=== PATIENT | female | born 1950 | race Caucasian/White ===

== ENCOUNTER 2020-07-21 15:01 | Emergency (ER) | payer MEDICARE, OTHER | END 2020-07-21 19:02 | disposition home or self-care (01) | LOC: CSHERS 15:01 | DX: S70.02XA Contusion of left hip, initial encounter (principal); J44.9 Chronic obstructive pulmonary disease, unspecified; N18.4 Chronic kidney disease, stage 4 (severe); Z87.891 Personal history of nicotine dependence; Z79.82 Long term (current) use of aspirin; W06.XXXA Fall from bed, initial encounter | CPT/HCPCS: 70450; 71045; 93005 ==

== ENCOUNTER 2020-08-28 15:09 | Outpatient (CLI) | payer MEDICARE, OTHER | END 2020-08-28 15:10 | disposition home or self-care (01) | LOC: CSHMRI 15:09 | PROVIDERS: ATTEND Neurological Surgery | DX: S06.5X0A Traumatic subdural hemorrhage without loss of consciousness, initial encounter (principal); R26.89 Other abnormalities of gait and mobility | CPT/HCPCS: 70551; 72141 ==

== ENCOUNTER 2020-09-08 18:54 | Inpatient (IN) | payer MEDICARE, OTHER ==
[2020-09-08 20:59] LABS: #Eosinphils 0.2 10x3/uL (0.0-0.5); #Monocytes 0.7 10x3/uL (0.0-1.1); #Neutrophils 5.8 10x3/uL (1.5-8.4); %Basophils 0.3 % (0.0-2.0); %Eosinophils 1.9 % (0.0-6.0); %Lymphocytes 29.2 % (18.0-47.0); %Neutrophils 61.1 % (40.0-75.0); Hemoglobin 10.2 g/dL (12.0-15.5); Mean Corpuscular HGB CONC 30.4 g/dL (32.0-36.0); Mean Corpuscular Volume 92.3 fl (81.6-98.3); Mean Platelet Volume 9.5 fl (7.4-10.4); Platelet Count 210 10x3/uL (150-450); RBC Distribution Width 15.1 % (11.5-14.5); Red Blood Cell (RBC) Count 3.64 10x6/uL (3.90-5.03); White Blood Cell (WBC) Count 9.5 10x3/uL (3.5-10.5)
[2020-09-08 21:22] LABS: ALT (SGPT) 14 U/L (8-55); AST (SGOT) 16 U/L (5-34); Albumin 3.7 g/dL (3.4-4.8); Alkaline Phosphatase 73 U/L (40-110); Anion Gap 15 mmol/L (10-20); BUN (Urea Nitrogen) 66 mg/dL (9.8-20.1); Bilirubin, Total 0.1 mg/dL (0.2-1.2); Calc. Creatinine Clearance 0 mL/min (70-130); Calcium 9.5 mg/dL (7.8-10.44); Carbon Dioxide 24 mmol/L (23-31); Chloride 107 mmol/L (98-107); Globulin 3.4 g/dL (2.4-3.5); Glucose 190 mg/dL (80-115); Protein, Total 7.1 g/dL (5.8-8.1); Sodium 140 mmol/L (136-145)
[2020-09-08] MEDS ORDERED: Sodium Bicarb 50 MEQ/50 ML VIAL ONE ×2 (21:53)
[2020-09-08] MEDS ORDERED: Calcium Gluconate 100 MG/ML 10 ML ONE (21:54)
[2020-09-08] MEDS ORDERED: Ventolin HFA Inhaler 60 PUFF INHALER INH SCH (22:00)
[2020-09-08] MEDS ORDERED: Ventolin HFA Inhaler 60 PUFF INHALER ONE (22:16)
[2020-09-09 01:06] VITALS: BMI 32.1
[2020-09-09] MEDS: Sodium Chloride 0.9% 1,000 ML IV SCH ×3 (01:33→09:47)
[2020-09-09 04:58] LABS: #Eosinphils 0.2 10x3/uL (0.0-0.5); #Monocytes 0.5 10x3/uL (0.0-1.1); #Neutrophils 4.4 10x3/uL (1.5-8.4); %Basophils 0.4 % (0.0-2.0); %Eosinophils 2.3 % (0.0-6.0); %Lymphocytes 32.5 % (18.0-47.0); %Neutrophils 57.4 % (40.0-75.0); Hemoglobin 8.9 g/dL (12.0-15.5); Mean Corpuscular HGB CONC 30.3 g/dL (32.0-36.0); Mean Corpuscular Hemoglobin 27.6 pg (27.0-33.0); Mean Corpuscular Volume 91.3 fl (81.6-98.3); Mean Platelet Volume 10.3 fl (7.4-10.4); Platelet Count 191 10x3/uL (150-450); RBC Distribution Width 15.2 % (11.5-14.5); Red Blood Cell (RBC) Count 3.22 10x6/uL (3.90-5.03); White Blood Cell (WBC) Count 7.7 10x3/uL (3.5-10.5)
[2020-09-09 05:10] LABS: Anion Gap 15 mmol/L (10-20); BUN (Urea Nitrogen) 62 mg/dL (9.8-20.1); Calc. Creatinine Clearance 31 mL/min (70-130); Calcium 9.1 mg/dL (7.8-10.44); Carbon Dioxide 24 mmol/L (23-31); Chloride 111 mmol/L (98-107); Glucose 195 mg/dL (80-115); Potassium 4.9 mmol/L (3.5-5.1); Sodium 145 mmol/L (136-145)
[2020-09-09] MEDS: Arformoterol 15 MCG/2 ML NEB NEB SCH ×2 (07:00→18:45)
[2020-09-09] MEDS: Heparin 5,000 UNITS/ML VIAL SC SCH ×3 (08:41→21:11)
[2020-09-09 11:27] LABS: SARS-CoV-2 NAA Rapid Test Not Detected (NotDetected)
[2020-09-09] MEDS ORDERED: Dextrose 50% Abboject 50 ML SYRINGE SLOW IVP PRN (13:02)
[2020-09-09] MEDS ORDERED: Dextrose 5% in Water 1,000 ML IV PRN (13:02)
[2020-09-09] MEDS: HumaLOG 300 UNITS/3 ML VIAL SC PRN ×2 (13:40→22:54)
[2020-09-09] MEDS ORDERED: Oxybutynin 5 MG TAB PO PRN (22:10)
[2020-09-10] MEDS: Sodium Chloride 0.9% 1,000 ML IV SCH (04:38)
[2020-09-10] MEDS: Arformoterol 15 MCG/2 ML NEB NEB SCH ×4 (08:01→20:19)
[2020-09-10] MEDS ORDERED: SITAGLIPTIN PHOSPHATE 25 MG PO SCH (09:00)
[2020-09-10] MEDS ORDERED: Zonisamide 25 MG CAP PO SCH (09:00)
[2020-09-10] MEDS: sulfaSALAzine 500 MG TAB PO SCH ×2 (09:50→22:00)
[2020-09-10] MEDS: Alogliptin 6.25 MG TAB PO SCH (09:50)
[2020-09-10] MEDS: levETIRAcetam 500 mg/5 ml Oral Solution PO SCH (09:50)
[2020-09-10] MEDS: Heparin 5,000 UNITS/ML VIAL SC SCH ×3 (09:50→22:03)
[2020-09-10] MEDS: Gabapentin 400 MG CAP PO SCH ×2 (09:50→22:01)
[2020-09-10] MEDS: Colchicine 0.6 MG TAB PO SCH (09:50)
[2020-09-10] MEDS: DULoxetine 30 MG CAP PO SCH (09:50)
[2020-09-10] MEDS: predniSONE 10 MG TAB PO SCH (09:50)
[2020-09-10] MEDS: Hydroxychloroquine Sulfate 200 MG TAB PO SCH (09:50)
[2020-09-10] MEDS: Bupropion 150 MG XL TAB PO SCH (09:50)
[2020-09-10] MEDS: Aspirin 81 mg Enteric Coated Tablet PO SCH (09:50)
[2020-09-10] MEDS: Ferrous Sulfate 325 MG TAB PO SCH (09:50)
[2020-09-10] MEDS: Metoprolol Tartrate 25 MG TAB PO SCH ×2 (09:50→22:00)
[2020-09-10] MEDS: Folic Acid 1 MG TAB PO SCH (09:50)
[2020-09-10] MEDS: Allopurinol 100 MG TAB PO SCH (09:50)
[2020-09-10 10:35] LABS: Anion Gap 14 mmol/L (10-20); BUN (Urea Nitrogen) 43 mg/dL (9.8-20.1); Calc. Creatinine Clearance 38 mL/min (70-130); Calcium 8.9 mg/dL (7.8-10.44); Carbon Dioxide 23 mmol/L (23-31); Chloride 110 mmol/L (98-107); Glucose 306 mg/dL (80-115); Potassium 4.4 mmol/L (3.5-5.1); Sodium 143 mmol/L (136-145)
[2020-09-10] MEDS: Budesonide 0.25 MG/2 ML NEB INH SCH ×2 (11:33→19:35)
[2020-09-10] MEDS: HYDROcodone/Acetaminophen 5/325 mg Tablet PO PRN ×2 (12:27→22:02)
[2020-09-10] MEDS: HumaLOG 300 UNITS/3 ML VIAL SC PRN (12:42)
[2020-09-10] MEDS ORDERED: Amitriptyline HCl 25 MG TAB PO SCH (21:00)
[2020-09-10] MEDS ORDERED: Simvastatin 10 MG TAB PO SCH (21:00)
[2020-09-11] MEDS: Budesonide 0.25 MG/2 ML NEB INH SCH (07:06)
[2020-09-11] MEDS: Arformoterol 15 MCG/2 ML NEB NEB SCH ×2 (07:06→07:10)
[2020-09-11] MEDS: Bupropion 150 MG XL TAB PO SCH (10:14)
[2020-09-11] MEDS: Heparin 5,000 UNITS/ML VIAL SC SCH (10:14)
[2020-09-11] MEDS: predniSONE 10 MG TAB PO SCH (10:15)
[2020-09-11] MEDS: Colchicine 0.6 MG TAB PO SCH (10:15)
[2020-09-11] MEDS: Hydroxychloroquine Sulfate 200 MG TAB PO SCH (10:15)
[2020-09-11] MEDS: DULoxetine 30 MG CAP PO SCH (10:15)
[2020-09-11] MEDS: sulfaSALAzine 500 MG TAB PO SCH (10:16)
[2020-09-11] MEDS: Gabapentin 400 MG CAP PO SCH (10:16)
[2020-09-11] MEDS: Folic Acid 1 MG TAB PO SCH (10:16)
[2020-09-11] MEDS: Allopurinol 100 MG TAB PO SCH (10:16)
[2020-09-11] MEDS: Metoprolol Tartrate 25 MG TAB PO SCH (10:16)
[2020-09-11] MEDS: Aspirin 81 mg Enteric Coated Tablet PO SCH (10:16)
[2020-09-11] MEDS: Ferrous Sulfate 325 MG TAB PO SCH (10:16)
[2020-09-11] MEDS: Alogliptin 6.25 MG TAB PO SCH (10:17)
[2020-09-11] MEDS: levETIRAcetam 500 mg/5 ml Oral Solution PO SCH (10:18)
[2020-09-11] MEDS: HumaLOG 300 UNITS/3 ML VIAL SC PRN (12:59)
[2020-09-11 15:38] VITALS: BP 115/60; TEMP 98.9
== END 2020-09-11 18:35 | disposition home or self-care (01) | DRG 641 ==
LOC: CSHERS 18:54 → CSHTELE 09-09 00:18
PROVIDERS: ADMIT Family Medicine; ATTEND Hospitalist
DX: E87.5 Hyperkalemia (principal); N17.9 Acute kidney failure, unspecified; N18.4 Chronic kidney disease, stage 4 (severe); Z20.822 Contact with and (suspected) exposure to COVID-19; I25.10 Atherosclerotic heart disease of native coronary artery without angina pectoris; J44.9 Chronic obstructive pulmonary disease, unspecified; E11.22 Type 2 diabetes mellitus with diabetic chronic kidney disease; I12.9 Hypertensive chronic kidney disease with stage 1 through stage 4 chronic kidney disease, or unspecified chronic kidney disease; D63.1 Anemia in chronic kidney disease; E78.5 Hyperlipidemia, unspecified; E11.40 Type 2 diabetes mellitus with diabetic neuropathy, unspecified; Z79.84 Long term (current) use of oral hypoglycemic drugs; Z95.5 Presence of coronary angioplasty implant and graft; M06.9 Rheumatoid arthritis, unspecified; Z98.84 Bariatric surgery status; Z90.49 Acquired absence of other specified parts of digestive tract; Z96.643 Presence of artificial hip joint, bilateral; Z87.891 Personal history of nicotine dependence; Z96.653 Presence of artificial knee joint, bilateral; Z86.79 Personal history of other diseases of the circulatory system; Z85.41 Personal history of malignant neoplasm of cervix uteri
CPT/HCPCS: 36415; 36416; 76770; 80048; 80053; 83735; 84100; 85025; 93005; 93010; 94640; 94664; 94760; 96365; J0610; J1644; J1815; J7512; J7626; U0002